=== PATIENT | female | born 1990 | race American Indian/Alaskan Native ===

== ENCOUNTER 2018-03-12 08:12 | Emergency (ER) | payer MEDICARE ==
--- NOTE | 2018-03-12 10:46 | Emergency Department Report ---
ED Psych HPI - General Chief Complaint: Psych Stated Complaint: MH Time Seen by Provider: 03/12/18 10:40 Source: patient, police Mode of arrival: Ambulatory - History of Present Illness Initial Comments: This is a 27-year-old female previously known to this facility with history of Prader-Sarabjit syndrome, type 2 diabetes and psychiatric disorder. She was transported by police for agitated behavior. She does not provide any useful historical information. She is awake alert and ambulatory is no specific complaints. However the charge nurse informed me that she has been impossible to manage. And persistently agitated. Therefore she was given Geodon. According to the triage record the patient states her brother took her TV and that made her mad. Her primary nurse, Hillary, tells me that the family would like her placed "for 7 days so she can calm down" in a psychiatric facility. Complaint: other - Related Data Home Medications Medication Instructions Recorded Confirmed Last Taken metFORMIN [Glucophage] 500 mg PO BID 03/09/14 03/12/18 Unknown Cetirizine HCl 5 mg PO DAILY 03/12/18 03/12/18 Unknown Dicyclomine [Bentyl] 10 mg PO TID 03/12/18 03/12/18 Unknown Divalproex Sodium [Depakote] 250 mg PO BID 03/12/18 03/12/18 Unknown Divalproex Sodium [Depakote] 500 mg PO QHS 03/12/18 03/12/18 Unknown Hydrochlorothiazide [Hctz] 12.5 mg PO QDAY 03/12/18 03/12/18 Unknown Linaclotide [Linzess] 145 mcg PO QDAY 03/12/18 03/12/18 Unknown Magnesium Oxide [Mag-Ox] 400 mg PO QDAY 03/12/18 03/12/18 Unknown Omeprazole 20 mg PO BID 03/12/18 03/12/18 Unknown Polyethylene Glycol 3350 [Miralax] 17 gm PO TID 03/12/18 03/12/18 Unknown Valsartan [Diovan] 160 mg PO BID 03/12/18 03/12/18 Unknown Vit B Comp/C/Folic/Iron/Vit E 1 each PO DAILY 03/12/18 03/12/18 Unknown [Vitamin B Complex Tablet] Zolpidem Tartrate [Ambien] 5 mg PO QHS 03/12/18 03/12/18 Unknown buPROPion SR [Wellbutrin Sr] 150 mg PO DAILY 03/12/18 03/12/18 Unknown busPIRone [Buspar] 10 mg PO BID 03/12/18 03/12/18 Unknown clonazePAM [KlonoPIN] 5 mg PO DAILY 03/12/18 03/12/18 Unknown Allergies Allergy/AdvReac Type Severity Reaction Status Date / Time lorazepam [From Ativan] Allergy Diarrhea Verified 08/18/13 14:58 procaine [From Novocain] Allergy Unknown Verified 03/12/18 08:43 ED Review of Systems ROS: Stated complaint: MH Other details as noted in HPI Comment: Unobtainable due to pts medical conditions ED Past Medical Hx - Past Medical History Previous Medical History?: Yes Hx Hypertension: Yes Hx Diabetes: Yes Hx Psychiatric Treatment: (Bipolar, OCD) Additional medical history: Mental Retardation; Prader Willi Syndrome, Bipolar, OCD - Surgical History Past Surgical History?: Yes Hx Cholecystectomy: Yes Additional Surgical History: Tonsillectomy. Hernia removed in June 2013 - Social History Smoking Status: Never Smoker Substance Use Type: None - Medications Home Medications: Home Medications Medication Instructions Recorded Confirmed Last Taken Type metFORMIN [Glucophage] 500 mg PO BID 03/09/14 03/12/18 Unknown History Cetirizine HCl 5 mg PO DAILY 03/12/18 03/12/18 Unknown History Dicyclomine [Bentyl] 10 mg PO TID 03/12/18 03/12/18 Unknown History Divalproex Sodium [Depakote] 250 mg PO BID 03/12/18 03/12/18 Unknown History Divalproex Sodium [Depakote] 500 mg PO QHS 03/12/18 03/12/18 Unknown History Hydrochlorothiazide [Hctz] 12.5 mg PO QDAY 03/12/18 03/12/18 Unknown History Linaclotide [Linzess] 145 mcg PO QDAY 03/12/18 03/12/18 Unknown History Magnesium Oxide [Mag-Ox] 400 mg PO QDAY 03/12/18 03/12/18 Unknown History Omeprazole 20 mg PO BID 03/12/18 03/12/18 Unknown History Polyethylene Glycol 3350 [Miralax] 17 gm PO TID 03/12/18 03/12/18 Unknown History Valsartan [Diovan] 160 mg PO BID 03/12/18 03/12/18 Unknown History Vit B Comp/C/Folic/Iron/Vit E 1 each PO DAILY 03/12/18 03/12/18 Unknown History [Vitamin B Complex Tablet] Zolpidem Tartrate [Ambien] 5 mg PO QHS 03/12/18 03/12/18 Unknown History buPROPion SR [Wellbutrin Sr] 150 mg PO DAILY 03/12/18 03/12/18 Unknown History busPIRone [Buspar] 10 mg PO BID 03/12/18 03/12/18 Unknown History clonazePAM [KlonoPIN] 5 mg PO DAILY 03/12/18 03/12/18 Unknown History ED Physical Exam - General Limitations: No Limitations General appearance: alert, in no apparent distress, obese - Head Head exam: Present: atraumatic, normocephalic - Eye Eye exam: Present: normal appearance. Absent: scleral icterus - ENT ENT exam: Present: mucous membranes moist - Neck Neck exam: Present: normal inspection - Respiratory Respiratory exam: Present: normal lung sounds bilaterally. Absent: respiratory distress - Cardiovascular Cardiovascular Exam: Present: regular rate, normal rhythm. Absent: systolic murmur, diastolic murmur, rubs, gallop - GI/Abdominal GI/Abdominal exam: Present: soft, normal bowel sounds. Absent: distended, tenderness, guarding, rebound, rigid - Extremities Exam Extremities exam: Present: normal inspection - Back Exam Back exam: Present: normal inspection - Neurological Exam Neurological exam: Present: alert, CN II-XII intact, normal gait. Absent: motor sensory deficit - Psychiatric Psychiatric exam: Present: agitated, flat affect - Skin Skin exam: Present: warm, dry, intact, normal color. Absent: rash ED Course Vital Signs 03/12/18 03/12/18 08:43 12:42 Temperature 98.9 F Pulse Rate 91 H Respiratory 18 18 Rate Blood Pressure 140/90 [Left] O2 Sat by Pulse 98 98 Oximetry ED Medical Decision Making - Lab Data Result diagrams: 03/12/18 12:38 03/12/18 12:38 Laboratory Results - last 24 hr 03/12/18 03/12/18 03/12/18 12:38 12:38 12:38 WBC RBC Hgb Hct MCV MCH MCHC RDW Plt Count Lymph % (Auto) [place] % (Auto) Eos % (Auto) Baso % (Auto) Lymph # [place] # Eos # Baso # Seg Neutrophils % Seg Neutrophils # Sodium 140 Potassium 4.5 Chloride 98.9 Carbon Dioxide 28 Anion Gap 18 BUN 15 Creatinine 0.5 L Estimated GFR > 60 BUN/Creatinine Ratio 30 Glucose 92 Calcium 9.6 Total Bilirubin Direct Bilirubin Indirect Bilirubin AST ALT Alkaline Phosphatase Total Creatine Kinase CK-MB (CK-2) CK-MB (CK-2) Rel Index Total Protein Albumin Albumin/Globulin Ratio HCG, Qual Urine Color Urine Turbidity Urine pH Ur Specific [place] Urine Protein Urine Glucose (UA) Urine Ketones Urine Blood Urine Nitrite Urine Bilirubin Urine Urobilinogen Ur Leukocyte Esterase Urine WBC (Auto) Urine RBC (Auto) U Epithel Cells (Auto) Urine Bacteria (Auto) Urine Mucus Salicylates < 0.3 L Urine Opiates Screen Urine Methadone Screen Acetaminophen < 5.0 L Ur Barbiturates Screen Ur Phencyclidine Scrn Ur Amphetamines Screen U Benzodiazepines Scrn Urine Cocaine Screen U Marijuana (THC) Screen Drugs of Abuse Note Plasma/Serum Alcohol 03/12/18 03/12/18 03/12/18 12:38 12:38 12:38 WBC 9.6 RBC 4.40 Hgb 10.7 Hct 33.6 MCV 76 L MCH 24 L MCHC 32 RDW 17.0 H Plt Count 281 Lymph % (Auto) 27.5 [place] % (Auto) 5.1 Eos % (Auto) 0.4 Baso % (Auto) 0.9 Lymph # 2.6 [place] # 0.5 Eos # 0.0 Baso # 0.1 Seg Neutrophils % 66.1 Seg Neutrophils # 6.4 Sodium Potassium Chloride Carbon Dioxide Anion Gap BUN Creatinine Estimated GFR BUN/Creatinine Ratio Glucose Calcium Total Bilirubin Direct Bilirubin Indirect Bilirubin AST ALT Alkaline Phosphatase Total Creatine Kinase CK-MB (CK-2) CK-MB (CK-2) Rel Index Total Protein Albumin Albumin/Globulin Ratio HCG, Qual Negative Urine Color Urine Turbidity Urine pH Ur Specific [place] Urine Protein Urine Glucose (UA) Urine Ketones Urine Blood Urine Nitrite Urine Bilirubin Urine Urobilinogen Ur Leukocyte Esterase Urine WBC (Auto) Urine RBC (Auto) U Epithel Cells (Auto) Urine Bacteria (Auto) Urine Mucus Salicylates Urine Opiates Screen Urine Methadone Screen Acetaminophen Ur Barbiturates Screen Ur Phencyclidine Scrn Ur Amphetamines Screen U Benzodiazepines Scrn Urine Cocaine Screen U Marijuana (THC) Screen Drugs of Abuse Note Plasma/Serum Alcohol < 0.01 03/12/18 03/12/18 03/12/18 12:38 14:01 14:01 WBC RBC Hgb Hct MCV MCH MCHC RDW Plt Count Lymph % (Auto) [place] % (Auto) Eos % (Auto) Baso % (Auto) Lymph # [place] # Eos # Baso # Seg Neutrophils % Seg Neutrophils # Sodium Potassium Chloride Carbon Dioxide Anion Gap BUN Creatinine Estimated GFR BUN/Creatinine Ratio Glucose Calcium Total Bilirubin < 0.20 Direct Bilirubin < 0.2 Indirect Bilirubin 0.0 AST 14 ALT 16 Alkaline Phosphatase 82 Total Creatine Kinase 127 CK-MB (CK-2) 1.8 CK-MB (CK-2) Rel Index 1.4 Total Protein 7.5 Albumin 3.7 L Albumin/Globulin Ratio 1.0 HCG, Qual Urine Color Yellow Urine Turbidity Clear Urine pH 5.0 Ur Specific [place] 1.012 Urine Protein <15 mg/dl Urine Glucose (UA) Neg Urine Ketones Neg Urine Blood Neg Urine Nitrite Neg Urine Bilirubin Neg Urine Urobilinogen < 2.0 Ur Leukocyte Esterase Neg Urine WBC (Auto) < 1.0 Urine RBC (Auto) 3.0 U Epithel Cells (Auto) 1.0 Urine Bacteria (Auto) 1+ Urine Mucus Few Salicylates Urine Opiates Screen Presumptive negative Urine Methadone Screen Presumptive negative Acetaminophen Ur Barbiturates Screen Presumptive negative Ur Phencyclidine Scrn Presumptive negative Ur Amphetamines Screen Presumptive negative U Benzodiazepines Scrn Presumptive negative Urine Cocaine Screen Presumptive negative U Marijuana (THC) Screen Presumptive negative Drugs of Abuse Note Disclamer Plasma/Serum Alcohol Critical care attestation.: If time is entered above; I have spent that time in minutes in the direct care of this critically ill patient, excluding procedure time. ED Disposition Clinical Impression: Agitation, Prader-Willi syndrome Bipolar disorder Qualifiers: Active/Remission status: currently active Current bipolar episode type: mixed Current episode severity: moderate Qualified Code(s): F31.62 - Bipolar disorder , current episode mixed, moderate Disposition: DC/[place]-[facility] Is pt being admited?: No Does the pt Need Aspirin: No Condition: Stable Referrals: TERRI SALEH MD [Primary Care Provider] - 3-5 Days Time of Disposition: 17:55
[2018-03-12] MEDS ORDERED: GEODON IM ONE ×4 (10:53→17:05)
[2018-03-12 13:13] LABS: BUN/Creatinine Ratio 30; Blood Urea Nitrogen 15 mg/dL (7-17); Calcium 9.6 mg/dL (8.4-10.2); Hemolysis Index 17
[2018-03-12 13:46] LABS: Hematocrit 33.6 % (30.3-42.9); Hemoglobin 10.7 gm/dl (10.1-14.3); Lymphocytes % (Auto) 27.5 % (13.4-35.0); Mean Corpuscular HGB Conc 32 % (30-34); Mean Corpuscular Hemoglobin 24 pg (28-32); Mean Corpuscular Volume 76 fl (79-97); Mean Platelet Volume 9.4 fl (6-12); Platelet Count 281 K/mm3 (140-440)
[2018-03-12 13:47] LABS: Basophils # (Auto) 0.1 K/mm3 (0.0-0.1); Basophils % (Auto) 0.9 % (0.0-1.8); Eosinophils % (Auto) 0.4 % (0.0-4.3); Lymphocytes # (Auto) 2.6 K/mm3 (1.2-5.4); Monocytes # (Auto) 0.5 K/mm3 (0.0-0.8); Monocytes % (Auto) 5.1 % (0.0-7.3)
[2018-03-12 14:00] LABS: Creatine Kinase MB 1.8 ng/mL (0.0-4.0)
[2018-03-12 14:02] LABS: Alanine Aminotransferase 16 units/L (7-56); Albumin 3.7 g/dL (3.9-5); Bilirubin,Direct < 0.2 mg/dL (0-0.2)
[2018-03-12 14:21] LABS: Bacteria,Urine 1+ /HPF (Negative); Bilirubin,Urine NEG (Negative); Blood,Urine NEG (Negative); Color,Urine Yellow (Yellow); Mucus,Urine FEW /HPF; Protein,Urine <15 mg/dL mg/dL (Negative); Urobilinogen,Urine < 2.0 mg/dL (<2.0); WBC,Urine < 1.0 /HPF (0.0-6.0)
[2018-03-12 14:32] LABS: Amphetamine Screen,Urine PRESUMPTIVE NEGATIVE; Benzodiazepines Screen,Urine PRESUMPTIVE NEGATIVE; Cannabinoid Screen,Urine PRESUMPTIVE NEGATIVE; Cocaine Screen,Urine PRESUMPTIVE NEGATIVE; Methadone Screen,Urine PRESUMPTIVE NEGATIVE; Opiate Screen,Urine PRESUMPTIVE NEGATIVE
[2018-03-12] MEDS ORDERED: GEODON IM PRN (17:00)
[2018-03-12 20:13] VITALS: BP 114/72
== END 2018-03-12 20:25 | disposition designated cancer center or children's hospital (05) ==
LOC: ED 08:12 → EEVIPCON 08:12 → ED 20:13
DX: F31.62 Bipolar disorder, current episode mixed, moderate (principal); Q87.1 Congenital malformation syndromes predominantly associated with short stature; I10 Essential (primary) hypertension; E11.9 Type 2 diabetes mellitus without complications; F42.9 Obsessive-compulsive disorder, unspecified; Z90.89 Acquired absence of other organs; Z90.49 Acquired absence of other specified parts of digestive tract; Z88.8 Allergy status to other drugs, medicaments and biological substances; Z79.899 Other long term (current) drug therapy
CPT/HCPCS: 36415; 80048; 80074; 80307; 81001; 82550; 82553; 84703; 85025; 96372; 99285; G0480; J3486; 80320

== ENCOUNTER 2018-04-18 10:31 | Emergency (ER) | payer MEDICARE ==
[2018-04-18 11:10] VITALS: BP 131/107
== END 2018-04-18 15:07 | disposition left against medical advice (07) ==
LOC: ED 10:31
DX: L02.419 Cutaneous abscess of limb, unspecified (principal); Z53.21 Procedure and treatment not carried out due to patient leaving prior to being seen by health care provider